=== PATIENT | female | born 1950 | race Caucasian/White ===

== ENCOUNTER 2021-02-13 08:59 | Outpatient (CLI) | payer OTHER ==
[2021-02-19] MEDS ORDERED: TOPROL XL50 M1 PO (12:23)
[2021-02-19] MEDS ORDERED: COZAAR100 MG PO (12:23)
[2021-02-19] MEDS ORDERED: XANAX XR0.5 MG PO (12:23)
[2021-02-19] MEDS ORDERED: CYMBALTA30 MG PO (12:24)
[2021-02-19] MEDS ORDERED: LIPITOR20 MG PO (12:24)
[2021-02-19] MEDS ORDERED: ZETIA10 MG PO (12:24)
[2021-02-19] MEDS ORDERED: PEPCID40 MG PO (12:25)
[2021-02-19] MEDS ORDERED: PROTONIX40 MG PO (12:25)
[2021-02-19] MEDS ORDERED: GLIPIZIDE XL2.5 MG PO (12:25)
[2021-02-19] MEDS ORDERED: METFORMIN HCL500 M3 PO (12:25)
[2021-02-19] MEDS ORDERED: TRADJENTA5 MG PO (12:26)
[2021-02-19] MEDS ORDERED: CARAFATE1 GM PO (12:26)
== END 2021-02-13 13:55 | disposition home or self-care (01) ==
LOC: LAB 08:59
PROVIDERS: ATTEND Surgery
DX: R07.89 Other chest pain (principal); N18.9 Chronic kidney disease, unspecified; I10 Essential (primary) hypertension; Z01.810 Encounter for preprocedural cardiovascular examination

== ENCOUNTER 2021-02-20 06:39 | Day surgery (SDC) | payer OTHER ==
[~2021-02-20 06:39] MED LIST: CARAFATE1 GM PO; COZAAR100 MG PO; CYMBALTA30 MG PO; GLIPIZIDE XL2.5 MG PO; LIPITOR20 MG PO; METFORMIN HCL500 M3 PO; PEPCID40 MG PO; PROTONIX40 MG PO; TOPROL XL50 M1 PO; TRADJENTA5 MG PO; XANAX XR0.5 MG PO; ZETIA10 MG PO
== END 2021-02-20 19:10 | disposition home or self-care (01) ==
LOC: CIR.AMB 06:39
PROVIDERS: ATTEND Surgery
DX: D05.01 Lobular carcinoma in situ of right breast (principal); D24.2 Benign neoplasm of left breast; Z20.822 Contact with and (suspected) exposure to COVID-19

== ENCOUNTER 2025-05-07 09:00 | Day surgery (SDC) | payer OTHER ==
[2025-04-30 08:30] VITALS: BP 130/83
[2025-04-30 08:33] LABS: URINE APPEARANCE Clear; URINE BILIRRUBIN Negative (NEGATIVE); URINE BLOOD Moderate; URINE COLOR Yellow; URINE KETONE Negative (NEGATIVE); URINE LEUKOCYTE Small; URINE NITRATE Negative; URINE UROBILINOGEN 0.2 E.U./dl
[2025-04-30 08:34] LABS: URINE BACTERIA 662.4 uL (0.0-1933); URINE EPITHELIAL CELLS 24.7 uL (0.0-38.8); URINE RBC 36.2 uL (0.0-20.8); URINE WBC 42.1 uL (0.0-23.2)
[2025-04-30 08:36] LABS: BASO % 0.9 % (0.1-1.2); EOS # 0.29 (0.04-0.54); EOS % 3.5 % (0.7-7.0); LYMPH # 1.89 (1.18-3.74); LYMPH % 23.0 % (19.3-53.1); MEAN PLATELET VOLUME 11.10 fl (9.4-12.4); MONO # 0.72 (0.24-0.82); MONO % 8.8 % (4.7-12.5); NEUT # 5.20 (1.56-6.13); NEUT % 63.4 % (34.0-71.1); RED CELL DISTRIBUTION WIDTH 13.2 % (11.6-14.4)
[2025-04-30 08:49] LABS: URINE CAST 0.29 uL (0.0-1.40); URINE GLUCOSE 250 MG/DL (NEGATIVE); URINE PROTEIN 100 (NEGATIVE)
[2025-04-30 08:54] LABS: INR 0.99
[2025-04-30 09:19] LABS: ALT/SGPT 20.0 U/L (12-78); AST/SGOT 16.0 U/L (15-37); BILIRUBIN TOTAL 0.42 mg/dL (0.3-1.2); BUN CREA RATIO 13.0 (7.0-25.0); CREATININE SERUM 3.73 mg/dL (0.55-1.02); GFR 11.9; GLOBULINA 4.1 G/DL (2.4-3.5); GLUCOSE FASTING 102.0 mg/dL (65-100); OSMOLALITY SERUM 294.0 MOSM/KG (275-295)
[~2025-05-07] VITALS: Ht 157.5 cm; Wt 74.8 kg
[~2025-05-07 09:00] MED LIST changes: +BUPIVACAINE HCL/MPF 0.5% 30ML VIAL ONE; +CEFAZOLIN SODIUM 1,000 MG VIAL ONE
== END 2025-05-07 12:00 | disposition home or self-care (01) ==
LOC: CIR.AMB 09:00
PROVIDERS: ATTEND Orthopaedic Surgery Hand Surgery
DX: M65.311 Trigger thumb, right thumb (principal)